=== PATIENT | male | born 1970 | race Caucasian/White ===

== ENCOUNTER 2016-10-30 12:44 | Emergency (ER) | payer MEDICAID, OTHER ==
[2016-10-30 12:58] VITALS: BP 124/80; PULSE 74; RESP 16; TEMP 98.1; O2SAT 96
--- NOTE | 2016-10-30 13:26 | EDPHY ---
H & P Smoking Status: Current every day smoker Time Seen by Provider: 10/30/16 13:12 HPI/ROS: CHIEF COMPLAINT: Puncture wound right foot HISTORY OF PRESENT ILLNESS: 46-year-old male history of peripheral neuropathy, diabetes, stepped on a merrill thorn 2 days ago that went through his shoe and punctured the right midfoot plantar surface. Complaining of pain at this location. He is able to bear weight albeit with pain. No erythema. No crepitus. No lymphangitic streaking. Tetanus up-to-date PRIMARY CARE PROVIDER: [facility] REVIEW OF SYSTEMS: A ten point review of systems was performed and is negative with the exception of the items mentioned in the HPI PHYSICAL EXAM (Prior to examination, patient consented to physical exam, hands were washed and my usual and customary physical exam procedures followed) 1) GENERAL: Well-developed, well-nourished, alert and oriented. Appears to be in no acute distress. 2) HEAD: Normocephalic 3) HEENT: Pupils equal, round, reactive to light bilaterally. 4) LUNGS: Breathing comfortably. 5) MUSCULOSKELETAL: proximal tibia and fibula nontender .5th MT nontender negative Collins test, compartments soft 6) SKIN: there is a puncture wound right midfoot lateral aspect on the plantar aspect. This is not through and through. There is no crepitus. No erythema. No lymphangitic streaking. Compartments are soft. 7) VASCULAR: DP,PT pulses and cap refill present and brisk DIFFERENTIAL DIAGNOSIS: in no particular order including but not limited to fracture, cellulitis, retained foreign body, compartment syndrome, osteomyelitis Procedure: Crutches indications for crutch use discussed with patient. Patient fitted for crutches by ER staff. Observed ambulating with crutches. I think the patient has the capacity to safely use crutches. Usual and customary crutch walking precautions provided (Cole Crook) Constitutional: Initial Vital Signs Temperature (C) 36.7 C 10/30/16 12:55 Heart Rate 74 10/30/16 12:55 Respiratory Rate 16 10/30/16 12:55 Blood Pressure 124/80 H 10/30/16 12:55 O2 Sat (%) 96 10/30/16 12:55 O2 Delivery Mode Room Air Allergies/Adverse Reactions: No Known Allergies Allergy (Unverified 10/30/16 12:54) Home Medications: Medication Instructions Recorded Cephalexin [Keflex] 500 mg PO QID 7 Days 10/30/16 Metformin HCl 10/30/16 levOFLOXACIN [levAQUIN (*)] 750 mg PO DAILY 7 Days 10/30/16 MDM/Departure - [facility] Imaging Results: Imaging Impressions Foot X-Ray 10/30/16 13:24 Impression: Negative right foot radiographs. Images reviewed by myself (Cole Crook) ED Course/Re-evaluation: Patient has no known history of cutaneous MRSA. He has no evidence of deep space infection or cutaneous infection at this time however given his history of diabetes, peripheral neuropathy and plantar puncture wound through foot I feel it is prudent to initiate antibiotic prophylaxis against methicillin sensitive Staph aureus, beta-hemolytic strep and Pseudomonas with Keflex and Levaquin. Recommend elevation and follow up in 1-2 days at [facility] or with on-call podiatry Dr. Angeles Jackson (Cole Crook) The patient was evaluated and managed by the physician retail loan originator assistant. I have reviewed this chart and I agree with the findings and plan of care as documented , as indicated by my signature. I am the secondary supervising physician. ( Amaya Mullen) - Depart Disposition: Home, Routine, Self-Care Clinical Impression: Puncture wound of plantar aspect of right foot Qualifiers: Encounter type: initial encounter Qualified Code(s): S91.331A - Puncture wound without foreign body, right foot, initial encounter Condition: Good Instructions: Puncture Wound (ED) Additional Instructions: Return to the ER if you develop redness, swelling, discharge, warmth to the wound, red streaks going up your leg, or any other symptoms that concern you. Stand Alone Forms: Work Excuse Prescriptions: Cephalexin [Keflex] 500 mg PO QID 7 Days levOFLOXACIN [levAQUIN (*)] 750 mg PO DAILY 7 Days Referrals: [facility] [Other] - 1-2 days without fail Angeles Jackson [Doctor of Podiatric Medicine] - 1-2 days without fail (Dr. Angeles Jackson is a foot doctor)
== END 2016-10-30 13:50 | disposition home or self-care (01) ==
DX: S91.331A Puncture wound without foreign body, right foot, initial encounter (principal); E11.9 Type 2 diabetes mellitus without complications; F17.200 Nicotine dependence, unspecified, uncomplicated; Z79.84 Long term (current) use of oral hypoglycemic drugs; W60.XXXA Contact with nonvenomous plant thorns and spines and sharp leaves, initial encounter